=== PATIENT | male | born 1960 ===

== ENCOUNTER 2024-08-17 16:21 | Outpatient (REF) | payer MEDICAID, SELFPAY ==
[2024-08-17 16:40] LABS: Hemoglobin 7.9 g/dL (14.0-18.0)
[2024-08-17 16:45] LABS: Potassium 5.2 mmol/L (3.5-5.1)
== END 2024-08-17 16:22 | disposition home or self-care (01) ==
LOC: LAB 16:21
PROVIDERS: PCP Family Medicine; Visit Provider Family Medicine
DX: D50.9 Iron deficiency anemia, unspecified (principal); R53.1 Weakness
CPT/HCPCS: 36415; 84132; 85018